=== PATIENT | male | born 1975 | race African-American/Black ===

== ENCOUNTER 2020-05-10 02:44 | Emergency (ER) | payer MEDICAID ==
[~2020-05-10] VITALS: Ht 180.3 cm; Wt 131.5 kg
[2020-05-10 02:53] VITALS: BP 133/84
[2020-05-10] MEDS ORDERED: KETOROLAC TROMETH 60MG/2ML VIAL IM ONE (04:00)
== END 2020-05-10 04:36 | disposition home or self-care (01) ==
LOC: ER 02:47
DX: S39.012A Strain of muscle, fascia and tendon of lower back, initial encounter (principal); S96.912A Strain of unspecified muscle and tendon at ankle and foot level, left foot, initial encounter; V43.52XA Car driver injured in collision with other type car in traffic accident, initial encounter; Y93.89 Activity, other specified; Y92.488 Other paved roadways as the place of occurrence of the external cause; Y99.8 Other external cause status
CPT/HCPCS: 72131; 73610; 96372; J1885

== ENCOUNTER 2024-12-05 13:22 | Emergency (ER) | payer MEDICAID ==
[~2024-12-05] VITALS: Ht 180.3 cm; Wt 142.1 kg
[~2024-12-05 13:22] MED LIST: IBUP-1455 PO; INDO50CA82 PO; PRED20TA2 PO
[2024-12-05] MEDS ORDERED: DICL1GEL59 EX (15:29)
[2024-12-05] MEDS ORDERED: MELO7.5T7 PO (15:29)
--- NOTE | 2024-12-05 15:29 | ED.PDOC ---
Musculoskeletal HPI Comments Portions of this chart may have been created with an modal fluency direct voice recognition software. Occasional wrong-word or "sound-alike" substitutions may have occurred due to the inherent limitations of voice recognition software. Please read the chart carefully and recognize, using context, where these substitutions have occurred. 49 y/o M, presents to the ED for CC of lower extremity. Patient states, he has been experiencing left knee pain that originates from his bilateral feet onset, xdays. Patient reports, pain to worsen with movement and when standing. No other symptoms or modifying factors present at this time. left knee pain Started xdays Able to bear weight on the leg Denies trauma to the knee or recent fall Denies skin color changes around the knee Denies masses around the knee Denies popping/locking/giving out of the knee Denies fever chills night sweats nausea vomiting Denies previous surgeries to the knee nor significant injury Chief Complaint: Lower Extremity Time Seen by MD: 14:25 Primary Care Provider: KINA Reviewed Notes: Nurses Notes, Medications, Allergies Allergies: Coded Allergies: NO KNOWN ALLERGIES (Unverified , 05/10/20) Home Meds Active Scripts Meloxicam (Meloxicam) 7.5 Mg Tab, 1 TAB PO DAILYP PRN for 30 Days, #30 TAB 0 Refills Prov:VINNY FORD NP 12/05/24 Diclofenac Sodium (Topical) (Voltaren Arthritis Pain) 1 % Gel, 1 APPLIC EX QIDP for 10 Days, #60 GRAMS 0 Refills Prov:VINNY FORD NP 12/05/24 Prednisone (Prednisone) 20 Mg Tab, 20 MG PO BID for 3 Days, #6 TAB 0 Refills Prov:NAPOLEON PEACE 04/25/24 Indomethacin (Indomethacin) 50 Mg Cap, 1 CAP PO TID PRN, #30 CAP 0 Refills Prov:NAPOLEON PEACE 04/25/24 Ibuprofen Micronized (Ibuprofen) 800 Mg Tab, 800 MG PO TID for 10 Days, #30 TAB 0 Refills Prov:VINNY FORD NP 04/17/24 Prednisone (Prednisone) 20 Mg Tab, 60 MG PO DAILY, #18 MG Prov:JARON LR 10/15/23 Indomethacin (Indomethacin) 50 Mg Cap, 1 CAP PO TID, #30 CAP Prov:JARON LR 10/15/23 Information Source: Patient Mode of Arrival: Ambulatory Location: Left Timing: Days Prehospital treatment: None Severity: Moderate Able to Move Extremity: Yes Bear Weight: Fully Pain: Moderate Mechanism: Spontaneous Circumstances: Spontaneous Onset of Symptoms: Spontaneous Symptoms: Pain Last Tetanus: Unknown Associated signs and symptoms: Knee pain Past Medical History PAST MEDICAL HISTORY: Denies Surgical History: Denies all surgeries Family History Family History: Reviewed,noncontributory to illness, No family hx of Cancer, No family hx of DM, No family hx of Heart jacey, No family hx of HTN, No family hx ofKidney jacey, No family hx of Liver jacey, No family hx of Lung jacey, No family hx of Stroke Social History Smoker: Non-Smoker Alcohol: Denies ETOH Use Drugs: Denies Drug Use Lives In: Home All Other Systems: Reviewed and Negative ( PER HPI) Physical Exam General Appearance: No Apparent Distress, Normal HEENT: Normal ENT Inspection, Pharynx Normal, TMs Normal Neck: Full Range of Motion, Non-Tender, Normal, Normal Inspection Respiratory: Chest Non-Tender, Lungs Clear, No Accessory Muscle Use, No Respiratory Distress, Normal Breath Sounds Cardiovascular: No Edema, No JVD, No Murmur, No Gallop, Normal Peripheral Pulses, Regular Rate/Rhythm Breast Exam: Deferred Gastrointestinal: No Organomegaly, Non Tender, No Pulsatile Mass, Normal Bowel Sounds, Soft Genitalia: Deferred Pelvic: Deferred Rectal: Deferred Extremities: No calf tenderness, Normal capillary refill, Normal inspection, Normal range of motion, Non-tender, No pedal edema Musculoskeletal : Location: Left (obvious lateral sts, mild ecchymosis, no erythema, no open wounds, no ttp to the medial malleouls, no to dorsal aspect of meatarsal, only localized ttp, no step offs, dorsal flexion/plantar flexion strong, dp 2+, capilary refill inrtact ) Extremity Location: Knee (normal to inspection. subjective pain w/ flexion and extension. no intability. neurovascular sensation intact) Apperance: Normal Neurologic: Alert, hose tester II-XII nml as Tested, No Motor Deficits, Normal Affect, Normal Mood, No Sensory Deficits Cerebellar Function: Normal Reflexes: Normal Skin: Dry, Normal Color, Warm Lymphatic: No Adenopathy Was a procedure done? Was a procedure done?: No Differential Diagnosis EXT Differential Diagnosis: Sprain, Dislocation, Strain, Arthritis X-Ray, Labs, Meds, VS Vital Signs Date Time Temp Pulse Resp B/P (MAP) Pulse Ox O2 Delivery O2 Flow Rate FiO2 12/05/24 16:52 98.7 12/05/24 16:07 98.7 12/05/24 15:45 98.8 89 18 152/97 (115) 98 98.8 12/05/24 15:45 98 12/05/24 13:40 98.2 97 20 142/90 (107) 97 98.2 X-Ray, Labs, Meds, VS Comment Management: follow up with PCP Patient does not currently demonstrate complications of fracture such as compartment syndrome, arterial or nerve injury. Disposition: Discharge with strict return precautions and instructions to follow up with primary MD within 24-48 hours for further evaluation including referral to an orthopedist or ecological modeler. Strict return precautions discussed Time of 1ST Reevaluation: 14:55 Reevaluation 1ST: Unchanged Patient Education/Counseling: Diagnosis, Treatment Family Education/Counseling: No Family Present Departure 1 Departure Time of Disposition: 15:26 Impression: Primary Impression: Internal derangement of knee Qualified Codes: M23.90 - Unspecified internal derangement of unspecified knee Disposition: HOME / SELF CARE / HOMELESS Condition: Stable e-Prescriptions Meloxicam (Meloxicam) 7.5 Mg Tab 1 TAB PO DAILYP PRN for 30 Days, #30 TAB 0 Refills Prov: VINNY FORD NP 12/05/24 Diclofenac Sodium (Topical) (Voltaren Arthritis Pain) 1 % Gel 1 APPLIC EX QIDP for 10 Days, #60 GRAMS 0 Refills Prov: VINNY FORD NP 12/05/24 Critical Care Note Critical Care Time?: No Stability Stability form required: No Heart Score Heart Score: Heart Score Response (Comments) Value History N/A 0 EKG N/A 0 Age N/A 0 Risk Factors N/A 0 Troponin N/A 0 Total 0 I personally scribed for VINNY FORD NP ([email or web address]) on 12/05/24 at 16:01. Electronically submitted by Elinor Arechiga ([email or web address]). I personally scribed for VINNY FORD NP ([email or web address]) on 12/05/24 at 16:02. Electronically submitted by Elinor Arechiga ([email or web address]). VINNY FORD NP Dec 05, 2024 15:29
[2024-12-05 15:45] VITALS: BP 152/97; PULSE 98; RESP 18; O2SAT 98
[2024-12-05] MEDS: KETOROLAC TROMETH 60MG/2ML VIAL IM ONE (16:07)
[2024-12-05] MEDS: ACETAMINOPHEN 325 MG TAB PO ONE (16:07)
[2024-12-05 16:52] VITALS: TEMP 98.7
== END 2024-12-05 16:53 | disposition home or self-care (01) ==
LOC: ER 13:26
DX: M23.8X2 Other internal derangements of left knee (principal)
CPT/HCPCS: 96372; 99283; J1885

== ENCOUNTER 2025-01-06 12:31 | Emergency (ER) | payer MEDICAID ==
[~2025-01-06] VITALS: Ht 180.3 cm; Wt 144.2 kg
[~2025-01-06 12:31] MED LIST changes: +DICL1GEL59 EX; +MELO7.5T7 PO
--- NOTE | 2025-01-06 13:06 | ED.PDOC ---
Back pain HPI HPI Comments A 49 YEAR-OLD MALE PRESENTS TO THE ED WITH A CHIEF COMPLAINT OF RIGHT SIDED HIP PAIN OF YESTERDAY. PATIENT DENIES ANY TRAUMA TO THE RIGHT SIDE, WELL , FURTHER ASSOCIATED SYMPTOMS OF ABDOMINAL PAIN, NAUSEA, VOMITING, HEADACHE, OR OTHER COMPLAINTS. NO OTHER SYMPTOMS OR MODIFYING FACTORS AT THIS TIME. PATIENT IS ALERT, ORIENTED X 4, AND HAS STEADY GAIT. Chief Complaint: Lower Extremity Time Seen by MD: 13:15 Primary Care Provider: KINA Reviewed Notes: Nurses Notes, Medications, Allergies Allergies: Coded Allergies: NO KNOWN ALLERGIES (Unverified , 05/10/20) Home Meds Active Scripts Tramadol HCl (Tramadol HCl) 50 Mg Tab, 50 MG PO BID, #24 TAB Prov:JARON LR 01/06/25 Meloxicam (Meloxicam) 7.5 Mg Tab, 1 TAB PO DAILYP PRN for 30 Days, #30 TAB 0 Refills Prov:VINNY FORD NP 12/05/24 Diclofenac Sodium (Topical) (Voltaren Arthritis Pain) 1 % Gel, 1 APPLIC EX QIDP for 10 Days, #60 GRAMS 0 Refills Prov:VINNY FORD NP 12/05/24 Prednisone (Prednisone) 20 Mg Tab, 20 MG PO BID for 3 Days, #6 TAB 0 Refills Prov:NAPOLEON PEACE 04/25/24 Indomethacin (Indomethacin) 50 Mg Cap, 1 CAP PO TID PRN, #30 CAP 0 Refills Prov:NAPOLEON PEACE 04/25/24 Ibuprofen Micronized (Ibuprofen) 800 Mg Tab, 800 MG PO TID for 10 Days, #30 TAB 0 Refills Prov:VINNY FORD NP 04/17/24 Prednisone (Prednisone) 20 Mg Tab, 60 MG PO DAILY, #18 MG Prov:JARON LR 10/15/23 Indomethacin (Indomethacin) 50 Mg Cap, 1 CAP PO TID, #30 CAP Prov:JARON LR 10/15/23 Information Source: Patient Mode of Arrival: Ambulatory Timing: Days (X1) Duration: Since onset, Days Location of Back pain: Other (RIGHT HIP ) Severity: Moderate Prehospital treatment: None Onset: Spontaneous History of: None Modifying Factors: Movement, Walking Associated signs and symptoms: Other (RIGHT HIP PAIN ) Past Medical History PAST MEDICAL HISTORY: Denies Surgical History: Denies all surgeries Family History Family History: Reviewed,noncontributory to illness, No family hx of Cancer, No family hx of DM, No family hx of Heart jacey, No family hx of HTN, No family hx ofKidney jacey, No family hx of Liver jacey, No family hx of Lung jacey, No family hx of Stroke Social History Smoker: Non-Smoker Alcohol: Denies ETOH Use Drugs: Denies Drug Use Lives In: Home Constitutional: denies: chills, diaphoresis, fatigue, fever, malaise, sweats, weakness, others EENTM: denies: blurred vision, double vision, ear bleeding, ear discharge, ear drainage, ear pain, ear ringing, eye pain, eye redness, hearing loss, mouth pain, mouth swelling, nasal discharge, nose bleeding, nose congestion, nose pain, photophobia, tearing, throat pain, throat swelling, voice changes, others Respiratory: denies: cough, hemoptysis, orthopnea, SOB at rest, shortness of breath, SOB with excertion, stridor, wheezing, others Cardiovascular: denies: chest pain, dizzy spells, diaphoresis, Dyspnea on exertion, edema, irregular heart beat, left arm pain, lightheadedness, palpitations, PND, syncope, others Gastrointestinal: denies: abdomen distended, abdominal pain, blood streaked bowels, constipated, diarrhea, dysphagia, difficulty swallowing, hematemesis, melena, nausea, poor appetite, poor fluid intake, rectal bleeding, rectal pain, vomiting, others Genitourinary: denies: burning, dysuria, flank pain, frequency, hematuria, incontinence, penile discharge, penile sore, pain, testicle pain, testicle swelling, urgency, others Neurological: denies: dizziness, fainting, headache, left sided numbness, left sided weakness, numbness, paresthesia, pre-existing deficit, right sided numbness, right sided weakness, seizure, speech problems, tingling, tremors, weakness, others Musculoskeletal: reports: back pain, muscle pain, others (RIGHT HIP PAIN ); denies: gout, joint pain, joint swelling, muscle stiffness, neck pain Integumetry: denies: bruises, change in color, change in hair/nails, dryness, laceration, lesions, lumps, rash, wounds, others Allergic/Immunocompromised: denies: Difficulty Healing, Frequent Infections, Hives, Itching, others Hematologic/Lymphatic: denies: anemia, blood clots, easy bleeding, easy bruising, swollen glands, others Endocrine: denies: excessive hunger, excessive sweating, excessive thirst, excessive urination, flushing, intolerance to cold, intolerance to heat, unexplained weight gain, unexplained weight loss, others Psychiatric: denies: anxiety, bipolar disorder, depression, hopeless, panic disorder, schizophrenia, sleepless, suicidal, others All Other Systems: Reviewed and Negative Physical Exam General Appearance: No Apparent Distress, Obese HEENT: Normal ENT Inspection, PERRL/EOMI, Pharynx Normal, TMs Normal Neck: Full Range of Motion, Non-Tender, Normal, Normal Inspection Respiratory: Chest Non-Tender, Lungs Clear, No Accessory Muscle Use, No Respiratory Distress, Normal Breath Sounds Cardiovascular: No Edema, No JVD, No Murmur, No Gallop, Normal Peripheral Pul ses, Regular Rate/Rhythm Breast Exam: Deferred Gastrointestinal: No Organomegaly, Non Tender, No Pulsatile Mass, Normal Bowel Sounds, Soft Genitalia: Deferred Pelvic: Deferred Rectal: Deferred Extremities: No calf tenderness, Normal capillary refill, Normal range of motion, No pedal edema, Tender (RIGHT HIP TO RIGHT LATERAL THIGH, NO BONY TENDERNESS, SWELLING AND DEFORMITY. ) Musculoskeletal : Apperance: Normal Neurologic: Alert, prop sawyer II-XII nml as Tested, No Motor Deficits, Normal Affect, Normal Mood, No Sensory Deficits Cerebellar Function: Normal Reflexes: Normal Skin: Dry, Normal Color, Warm Peripheral Pulses: 2+ carotid (R), 2+ carotid (L) Lymphatic: No Adenopathy Was a procedure done? Was a procedure done?: No Back Pain Differential Dx Differential Diagnosis: Fracture, Musculoskeletal Pain, Urinary Obstruction X-Ray, Labs, Meds, VS Vital Signs Date Time Temp Pulse Resp B/P (MAP) Pulse Ox O2 Delivery O2 Flow Rate FiO2 01/06/25 13:00 98.2 97 18 142/90 (107) 97 98.2 Current Medications Medications (Trade) Dose Ordered Sig/Jacklyn Route Start Time Stop Time Status Last Admin Ketorolac Tromethamine (Toradol Injection) 60 mg ONCE ONCE IM 01/06/25 13:15 01/06/25 13:16 DC 7/5/25 13:30 EXAM: XY R HIP COMPLETE XRAY CLINICAL HISTORY: PAIN, NO INJURY COMPARISON: None TECHNIQUE: XY R HIP COMPLETE XRAY Findings/Impression: 2 views of the right hip with frontal view of the pelvis. There is no evidence of an acute fracture, dislocation, blastic, or lytic lesions. Mild degenerative changes of bilateral hips. No radiopaque foreign bodies. No joint effusion or superficial soft tissue abnormalities. X-Ray, Labs, Meds, VS Comment EXTERNAL MEDICAL RECORDS: NONE INDEPENDENT HISTORIANS: NONE SOCIAL DETERMINANTS OF HEALTH: NONE LABS ORDERED: NONE REVIEWED AND INTERPRETED RESULTS: NONE IMAGING ORDERED: RIGHT HIP XRAY TREATMENTS ORDERED: TORADOL INJECTION PATIENT'S CASE AND RESULTS HAVE BEEN DISCUSSED WITH THE ED ATTENDING PHYSICIAN AND THEY AGREE WITH MY PLAN OF CARE. RX: ULTRAM I HAVE DISCUSSED IMAGING AND LAB RESULTS WITH THE PATIENT AND HAVE INSTRUCTED THE PATIENT TO FOLLOW UP WITH THEIR PCP IN 1-2 DAYS. THE PATIENT FULLY UNDERSTANDS THEIR RESULTS AND ARE AWARE THEY NEED TO FOLLOW UP WITH THEIR PCP FOR FURTHER EVALUATION IF THEIR SYMPTOMS PERSIST. Images Reviewed?: Images reviewed and evaluated by me Time of 1ST Reevaluation: 13:57 Reevaluation 1ST: Improved Patient Education/Counseling: Diagnosis, Treatment, Need For Follow Up Family Education/Counseling: Diagnosis, Treatment, No Family Present Medical Screening: No EMC Exist At This Time SEPSIS Sepsis Screen Physician Orders R Hip Complete Xray (01/06/25 13:05) Vital Signs Date Time Temp Pulse Resp B/P (MAP) Pulse Ox O2 Delivery O2 Flow Rate FiO2 01/06/25 13:00 98.2 97 18 142/90 (107) 97 98.2 Medications Medications Dose Ordered Sig/Jacklyn Route Start Time Stop Time Status Last Admin Dose Admin Ketorolac Tromethamine 60 mg ONCE ONCE IM 01/06/25 13:15 01/06/25 13:16 DC 01/06/25 13:30 Departure 1 Departure Time of Disposition: 13:58 Impression: Primary Impression: Acute right-sided back pain with sciatica Disposition: 01 HOME / SELF CARE / HOMELESS Condition: Stable Additional Instructions: FOLLOW-UP WITH PCP IN 1 TO 2 DAYS. TAKE MEDICATIONS PRESCRIBED. RETURN TO ED FOR ANY NEW OR WORSENING SYMPTOMS. e-Prescriptions Tramadol HCl (Tramadol HCl) 50 Mg Tab 50 MG PO BID, #24 TAB Prov: JARON LR 01/06/25 Discharged With: Self Critical Care Note Critical Care Time?: No Stability Stability form required: No Heart Score Heart Score: Heart Score Response (Comments) Value History N/A 0 EKG N/A 0 Age N/A 0 Risk Factors N/A 0 Troponin N/A 0 Total 0 I personally scribed for JARON LR ([email or web address]) on 01/06/25 at 13:06. Electronically submitted by Carole Smith ([email or web address]). I personally scribed for JARON LR ([email or web address]) on 01/06/25 at 13:24. Electronically submitted by Carole Smith ([email or web address]). I personally scribed for JARON LR ([email or web address]) on 01/06/25 at 13:39. Electronically submitted by Carole Smith ([email or web address]). I personally scribed for NORAH LIU MD ([email or web address]) on 01/06/25 at 14:02. Electronically submitted by Carole Smith ([email or web address]). JARON LR Jan 06, 2025 13:06 NORAH LIU MD Jan 06, 2025 14:02
[2025-01-06] MEDS: KETOROLAC TROMETH 60MG/2ML VIAL IM ONE (13:30)
--- NOTE | 2025-01-06 13:35 | DVH ---
EXAM: XY R HIP COMPLETE XRAY CLINICAL HISTORY: PAIN, NO INJURY COMPARISON: None TECHNIQUE: XY R HIP COMPLETE XRAY Findings/Impression: 2 views of the right hip with frontal view of the pelvis. There is no evidence of an acute fracture, dislocation, blastic, or lytic lesions. Mild degenerative changes of bilateral hips. No radiopaque foreign bodies. No joint effusion or superficial soft tissue abnormalities.
[2025-01-06] MEDS ORDERED: TRAM-626 PO (13:59)
[2025-01-06 14:09] VITALS: BP 146/86; PULSE 91; RESP 20; TEMP 97; O2SAT 94
== END 2025-01-06 14:14 | disposition home or self-care (01) ==
LOC: ER 12:31
DX: M54.31 Sciatica, right side (principal); R11.2 Nausea with vomiting, unspecified
CPT/HCPCS: 73502; 96372; 99283; J1885